=== PATIENT | female | born 1945 | race Caucasian/White ===

== ENCOUNTER 2021-08-10 12:54 | Observation (INO) | payer MEDICARE ==
[~2021-08-10] VITALS: Ht 154.9 cm; Wt 89.9 kg
[2021-08-10] MEDS ORDERED: fentaNYL PF VIAL 100 MCG/2 ML VIAL IV ONE (13:30)
[2021-08-10] MEDS ORDERED: ASPIRIN 325 MG TABLET PO ONE (13:30)
[2021-08-10] MEDS ORDERED: ONDANSETRON PF 4 MG/2 ML VIAL. IVP ONE (13:30)
[2021-08-10 13:31] LABS: BASO % 0 % (0-3); EOS % 0 % (0-3); HEMATOCRIT 44.5 % (36.0-47.0); HEMOGLOBIN 15.1 g/dL (12.0-15.5); LYMPH # 0.5 x10^3/uL (1.0-4.8); LYMPH % 4 % (24-48); MEAN CORPUSCULAR HEMOGLOBIN 32 pg (25-35); MEAN CORPUSCULAR HGB CONC 34 g/dL (31-37); MEAN CORPUSCULAR VOLUME 95 fL (79-100); MONO # 0.8 x10^3/uL (0.0-1.1); MONO % 6 % (0-9); NEUT # 11.2 x10^3/uL (1.8-7.7); NEUT % 89 % (31-73); PLATELET COUNT 159 x10^3/uL (140-400); RED BLOOD COUNT 4.69 x10^6/uL (3.50-5.40); RED CELL DISTRIBUTION WIDTH 14.3 % (11.5-14.5); WHITE BLOOD COUNT 12.6 x10^3/uL (4.0-11.0)
[2021-08-10 13:39] LABS: CALCIUM 8.9 mg/dL (8.5-10.1); CREATININE 1.4 mg/dL (0.6-1.0); GFR 36.7; POTASSIUM 3.8 mmol/L (3.5-5.1)
[2021-08-10 13:44] LABS: ALBUMIN 3.4 g/dL (3.4-5.0); TOTAL BILIRUBIN 0.6 mg/dL (0.2-1.0); TOTAL PROTEIN 6.8 g/dL (6.4-8.2)
--- NOTE | 2021-08-10 13:45 | PHYS DOC ---
Past Medical History Past Medical History: Hypertension, Hypothyroid Past Medical History Patient reports that 5 years prior she believes she had an arrhythmia which led to a cardioversion. She is unsure of additional specific cardiac histories Additional Past Surgical Histo: Cataracts Additional Information: At least 50-year history of a pack every 4 days cigarettes Alcohol Use: None Drug Use: None Social History Narrative: Unremarkable social history General Adult EDM: Chief Complaint: CHEST PAIN HPI: HPI: Patient is a 76-year-old female who presents to the emergency department via triage with a chief complaint of chest pain since 0630 hrs. patient reports that the chest pain started suddenly, is described as a sharp pain, on the left side underneath the breast and radiating to the left shoulder. Pain is rated as a 10/10. Pain is worse on inspiration. Patient did not report any radiation to the arm or jaw. She did have nausea this morning however there was no vomiting, she denies having any episodes of diaphoresis. She has no recent long periods of travel. No recent vacations. She reports taking all of her medications as prescribed. Recently she had her dose of amiodarone lowered but there were no other changes to medications. She reports that she has had a slight cough and shortness of breath. Please note that upon arrival to the department she had an a pulse ox of 87% on room air which increased to 96% on 2 L nasal cannula. The patient is not regularly on supplemental oxygen. Patient reports slight bilateral leg swelling however that is normal for her. She denies any significantly worse unilateral leg swelling or pain. Patient denies history of diabetes or COPD. She only reports a history of hypertension and hypothyroidism however in conversing with her she is on several cardiac medications including Eliquis, spironolactone, amiodarone, hydralazine, furosemide. Review of Systems: Review of Systems: Constitutional: Denies fever or chills Eyes: Denies redness or eye pain HENT: Denies nasal congestion or sore throat Respiratory: Reports cough, shortness of breath Cardiovascular: Reports chest pain, left shoulder blade pain, denies palpitations GI: Denies abdominal pain, vomiting; reports nausea : Denies dysuria or hematuria Musculoskeletal: Denies back pain or joint pain Integument: Denies rash or skin lesions, denies diaphoresis Neurologic: Denies headache, focal weakness or sensory changes Complete systems were reviewed and found to be within normal limits, except as documented in this note. Heart Score: C/O Chest Pain: Yes HEART Score for Chest Pain: HEART Score for Chest Pain Response (Comments) Value History Slighlty/Non-Suspicious 0 ECG Normal 0 Age > 65 2 Risk Factors 1 or 2 Risk Factors 1 Total 3 Risk Factors: Risk Factors: DM, Current or recent (<one month) smoker, HTN, HLP, family history of CAD, obesity. Risk Scores: Score 0 - 3: 2.5% MACE over next 6 weeks - Discharge Home Score 4 - 6: 20.3% MACE over next 6 weeks - Admit for Clinical Observation Score 7 - 10: 72.7% MACE over next 6 weeks - Early Invasive Strategies Current Medications: Current Medications Medications (Trade) Dose Ordered Sig/Cory Start Time Stop Time Status Last Admin Dose Admin Aspirin (Mia Aspirin) 325 mg 1X ONCE 08/10/21 13:30 08/10/21 13:31 DC Fentanyl Citrate (Fentanyl 2ml Vial) 50 mcg 1X ONCE 08/10/21 13:30 08/10/21 13:31 DC 08/10/21 13:32 50 MCG Ondansetron HCl (Zofran) 4 mg 1X ONCE 08/10/21 13:30 08/10/21 13:31 DC 08/10/21 13:32 4 MG Allergies: Allergies: Allergies Coded Allergies Type Severity Reaction Last Updated Verified Penicillins Allergy Severe 08/10/21 Yes Physical Exam: PE: Constitutional: Well developed, well nourished, appears anxious, non-toxic appearance HENT: Normocephalic, atraumatic Eyes: PERRL, conjunctiva normal, no discharge Neck: no tenderness, supple, no JVD, trachea midline Lungs & Thorax: Patient is short of breath, normal chest wall excursion bilaterally, lung sounds mildly diminished in bilateral bases Abdomen: Soft, no tenderness, no guarding, no rigidity, no rebound tenderness Skin: Warm, dry, no erythema, no rash Back: No tenderness, no CVA tenderness Extremities: No tenderness, ROM intact, no edema Neurologic: Alert and oriented X 3, normal motor function, normal sensory fu nction, no focal deficits noted Psychologic: Affect normal, judgment normal, appears anxious Current Patient Data: Labs: Laboratory Tests Test 08/10/21 13:12 White Blood Count 12.6 x10^3/uL (4.0-11.0) H Red Blood Count 4.69 x10^6/uL (3.50-5.40) Hemoglobin 15.1 g/dL (12.0-15.5) Hematocrit 44.5 % (36.0-47.0) Mean Corpuscular Volume 95 fL (79-100) Mean Corpuscular Hemoglobin 32 pg (25-35) Mean Corpuscular Hemoglobin Concent 34 g/dL (31-37) Red Cell Distribution Width 14.3 % (11.5-14.5) Platelet Count 159 x10^3/uL (140-400) Neutrophils (%) (Auto) 89 % (31-73) H Lymphocytes (%) (Auto) 4 % (24-48) L Monocytes (%) (Auto) 6 % (0-9) Eosinophils (%) (Auto) 0 % (0-3) Basophils (%) (Auto) 0 % (0-3) Neutrophils # (Auto) 11.2 x10^3/uL (1.8-7.7) H Lymphocytes # (Auto) 0.5 x10^3/uL (1.0-4.8) L Monocytes # (Auto) 0.8 x10^3/uL (0.0-1.1) Eosinophils # (Auto) 0.0 x10^3/uL (0.0-0.7) Basophils # (Auto) 0.0 x10^3/uL (0.0-0.2) Platelet Estimate Pending Laboratory Tests 08/10/21 13:12 Vital Signs: Vital Signs Date Time Temp Pulse Resp B/P (MAP) Pulse Ox O2 Delivery O2 Flow Rate FiO2 08/10/21 13:32 26 93 Nasal Cannula 2.0 EKG: EKG: EKG taken at 1303 hrs. sinus bradycardia rate of 52 bpm. MI interval approximately 120 ms, QRS 110 ms, QT/QTc 452 ms / 422 ms. No ectopy, no evidence of acute ischemic change, ST segments at baseline. @1531 Sinus bradycardia at 55bpm, NO ST elevation, QRS 116ms, QT/QTc 440/423ms, no significant change from prior. Radiology/Procedures: Radiology/Procedures: [] Course & Med Decision Making: Course & Med Decision Making 76-year-old female presents to the emergency department via triage with a chief complaint of chest pain. Pain is described as atypical, left-sided breast pain with radiation to left shoulder however worse with inspiration, not associated with exertion. Patient on several cardiac meds with uncertain specific cardiac history. Initial EKG taken not concerning for any acute ischemic changes, as documented within this report. Plan for patient to receive IV, blood work, EKG, CTA chest. Please note that the patient reports history of "breaking out "when taking aspirin and subsequently refused medication. Patient requiring admission for further evaluation and treatment. Discussed with Dr. Mcfadden (hospitalist) who is in agreement with admission. Discussed findings and plan with patient, who acknowledges understanding and agreement. Vane Disclaimer: Vane Disclaimer: This electronic medical record was generated, in whole or in part, using a voice recognition dictation system. Departure Departure Impression: Primary Impression: Chest pain Qualified Codes: R07.9 - Chest pain, unspecified Additional Impression: Renal insufficiency Disposition: ADMITTED INPATIENT (observation) Admitting Physician: OMAYRA (Bogdan) Condition: STABLE AMBER GONG Holger MATA Aug 10, 2021 13:45
[2021-08-10 13:55] LABS: % BANDS 7 % (0-9); % EOS 2 % (0-5); % LYMPHS 5 % (24-48); % MONOS 6 % (0-10); % SEGS 80 % (35-66); PLT ESTIMATE ADEQUATE (ADEQUATE)
[2021-08-10] MEDS ORDERED: HYDR100T24 PO (14:11)
[2021-08-10] MEDS ORDERED: AMIO100T4 PO (14:11)
[2021-08-10] MEDS ORDERED: PANT20TA2 PO (14:11)
[2021-08-10] MEDS ORDERED: SPIR100T4 PO (14:11)
[2021-08-10] MEDS ORDERED: FERR-36 PO (14:11)
--- NOTE | 2021-08-10 14:58 | RAD ---
XR CHEST 1V 08/10/2021 2:53 PM INDICATION: Chest pain COMPARISON: None available TECHNIQUE: Portable frontal view of the chest is provided. FINDINGS: The cardiomediastinal silhouette is borderline enlarged. Perihilar interstitial changes are identifie d as may be seen with interstitial pneumonitis versus interstitial edema. Trace left pleural effusion. No pneumothorax. No suspicious osseous abnormality. IMPRESSION: Borderline cardiac may relate with perihilar interstitial prominence. Differential considerations wou ld include interstitial edema as may be seen with congestive heart failure versus interstitial pneumo nitis of infectious/inflammatory etiology. Electronically signed by: Maryam Miranda MD (08/10/2021 2:55 PM) [id number]
[2021-08-10] MEDS ORDERED: fentaNYL PF VIAL 100 MCG/2 ML VIAL IVP PRN (15:00)
[2021-08-10] MEDS ORDERED: ONDANSETRON PF 4 MG/2 ML VIAL. IVP PRN ×2 (15:00→17:30)
--- NOTE | 2021-08-10 15:43 | EKG ---
[facility] [address] [place] [address] Test Date: 2021-08-10 Test Time: 15:31:40 Pat Name: ALEXANDER AN Department: Room: 8 1 Gender: F Director Of Field Sales: : 1945 Requested By: AMBER GONG Order Number: [id number] Reading MD: Eduardo Bright Measurements Intervals [place] Rate: 55 P: RI: QRS: 88 QRSD: 116 T: 19 QT: 440 QTc: 423 Interpretive Statements PROBABLE SINUS BRADYCARDIA PACS Electronically Signed On 08-11-2021 9:33:19 INSTRUMENTATION TECHNICIAN by Eduardo Bright
--- NOTE | 2021-08-10 15:44 | EKG ---
[facility] [address] [place] [address] Test Date: 2021-08-10 Test Time: 13:03:11 Pat Name: ALEXANDER AN Department: Room: 8 Gender: F Medical Assistant Float: : 1945 Requested By: AMBER GONG Order Number: [id number] Reading MD: Eduardo Bright Measurements Intervals [place] Rate: 52 P: [place]: QRS: 79 QRSD: 110 T: 31 QT: 452 QTc: 422 Interpretive Statements PROBABLE SINUS RHYTHM NONSPECIFIC ST T WAVE CHANGES Electronically Signed On 08-11-2021 9:37:33 SENIOR ANALYTIC CONSULTANT by Eduardo Bright
[2021-08-10 16:15] VITALS: BP 157/59
--- NOTE | 2021-08-10 17:29 | PDOC1 ---
History and Physical Date of Service: DOS: DATE: 08/10/21 TIME: 17:28 Chief Complaint: Chief Complain: chest pain History of Present Illness: HPI: Patient is a 76-year-old female who presents to the emergency department via triage with a chief complaint of chest pain since 0630 hrs. patient reports that the chest pain started suddenly, is described as a sharp pain, on the left side underneath the breast and radiating to the left shoulder. Pain is rated as a 10/10. Pain is worse on inspiration. Patient did not report any radiation to the arm or jaw. She did have nausea this morning however there was no vomiting, she denies having any episodes of diaphoresis. She has no recent long periods of travel. No recent vacations. She reports taking all of her medications as prescribed. Recently she had her dose of amiodarone lowered but there were no other changes to medications. She reports that she has had a slight cough and shortness of breath. Please note that upon arrival to the department she had an a pulse ox of 87% on room air which increased to 96% on 2 L nasal cannula. The patient is not regularly on supplemental oxygen. Patient reports slight bilateral leg swelling however that is normal for her. She denies any significantly worse unilateral leg swelling or pain. Patient denies history of diabetes or COPD. She only reports a history of hypertension and hypothyroidism however in conversing with her she is on several cardiac medications including Eliquis, spironolactone, amiodarone, hydralazine, furosemide. Past Medical/Surgical History: PMH/PSH: HTN, Hypothyroid, Afib, CHF Allergies: Allergies: Coded Allergies: Penicillins (Verified Allergy, Severe, 08/10/21) Family History: Family History: HTN Social History: Social History: Smokes pack cigarettes every 4 days. Denies alcohol drug use. Current Medications: Current Medications Current Medications Aspirin (Mia Aspirin) 325 mg 1X ONCE PO ; Start 08/10/21 at 13:30; Stop 08/10/21 at 13:31; Status DC Ondansetron HCl (Zofran) 4 mg 1X ONCE IVP Last administered on 08/10/21at 13:32; Start 08/10/21 at 13:30; Stop 08/10/21 at 13:31; Status DC Fentanyl Citrate (Fentanyl 2ml Vial) 50 mcg 1X ONCE IV Last administered on 08/10/21at 13:32; Start 08/10/21 at 13:30; Stop 08/10/21 at 13:31; Status DC Ondansetron HCl (Zofran) 4 mg PRN Q8HRS PRN IVP NAUSEA/VOMITING; Start 1 10/10/20 at 15:00; Stop 08/11/21 at 14:59 Fentanyl Citrate (Fentanyl 2ml Vial) 50 mcg PRN Q2HRS PRN IVP PAIN; Start 08/10/21 at 15:00 Active Scripts Active Reported Iron (Ferrous Sulfate) 325 Mg Tablet 325 Mg PO DAILY Hydralazine Hcl 100 Mg Tablet 100 Mg PO TID Protonix (Pantoprazole Sodium) 20 Mg Tablet.dr 20 Mg PO DAILY Amiodarone Hcl 100 Mg Tablet 100 Mg PO DAILY Spironolactone 100 Mg Tablet 100 Mg PO DAILY ROS: Review of Systems Review of System Unless noted in HPI 14 point review of systems was negative Physical Exam: Vital Signs: Vital Signs Date Time Temp Pulse Resp B/P (MAP) Pulse Ox O2 Delivery O2 Flow Rate FiO2 08/10/21 16:48 Nasal Cannula 2.0 08/10/21 16:15 98.4 56 20 157/59 (91) 98.4 08/10/21 15:45 92 Physcial Exam: GEN: No apparent distress. Alert and oriented HEENT: Normal cephalic, atraumatic, external auditory canals are patent EYES: Extraocular muscles are intact, pupil are equally round and reactive to light and accommodation MUSCULOSKELETAL: Well developed , well nourished, good range of motion ENDOCRINE: No thyromegaly was palpated LYMPHATICS: No cervical chain or axillary nodes were noted HEMATOPOIETIC: No bruising NECK: Supple, no JVD, no thyromegaly was noted LUNGS: Clear to auscultation in all lung alaniz without rhonchi or wheezing HEART: RRR, S!, S2 present. Peripheral pulses intact, no obvious murmurs noted ABDOMEN: Soft, nontender. Positive bowel sounds, no organomegaly, normal bowel sounds EXTREMITIES: Without clubbing, cyanosis, or edema. Pedal pulses intact. Negative Homans sign NEUROLOGIC: Normal speech and tone. A&O x 3, moves all extremities, no obvious focal deficits PSYCHIATRIC: Normal affect, normal mood. Stable SKIN: No ulcerations or rashes, good skin turgor, no jaundice VASCULAR: Good capillary refill, neurovascular bundle appears to be intact Labs: Labs: Laboratory Tests Test 08/10/21 13:12 08/10/21 13:39 White Blood Count 12.6 x10^3/uL (4.0-11.0) Red Blood Count 4.69 x10^6/uL (3.50-5.40) Hemoglobin 15.1 g/dL (12.0-15.5) Hematocrit 44.5 % (36.0-47.0) Mean Corpuscular Volume 95 fL (79-100) Mean Corpuscular Hemoglobin 32 pg (25-35) Mean Corpuscular Hemoglobin Concent 34 g/dL (31-37) Red Cell Distribution Width 14.3 % (11.5-14.5) Platelet Count 159 x10^3/uL (140-400) Neutrophils (%) (Auto) 89 % (31-73) Lymphocytes (%) (Auto) 4 % (24-48) Monocytes (%) (Auto) 6 % (0-9) Eosinophils (%) (Auto) 0 % (0-3) Basophils (%) (Auto) 0 % (0-3) Neutrophils # (Auto) 11.2 x10^3/uL (1.8-7.7) Lymphocytes # (Auto) 0.5 x10^3/uL (1.0-4.8) Monocytes # (Auto) 0.8 x10^3/uL (0.0-1.1) Eosinophils # (Auto) 0.0 x10^3/uL (0.0-0.7) Basophils # (Auto) 0.0 x10^3/uL (0.0-0.2) Segmented Neutrophils % 80 % (35-66) Band Neutrophils % 7 % (0-9) Lymphocytes % 5 % (24-48) Monocytes % 6 % (0-10) Eosinophils % 2 % (0-5) Platelet Estimate Adequate (ADEQUATE) Prothrombin Time 16.0 SEC (11.7-14.0) Prothromb Time International Ratio 1.3 (0.8-1.1) Activated Partial Thromboplast Time 33 SEC (24-38) D-Dimer (Rashmi) 0.27 ug/mlFEU (0.00-0.50) Sodium Level 142 mmol/L (136-145) Potassium Level 3.8 mmol/L (3.5-5.1) Chloride Level 102 mmol/L (98-107) Carbon Dioxide Level 29 mmol/L (21-32) Anion Gap 11 (6-14) Blood Urea Nitrogen 29 mg/dL (7-20) Creatinine 1.4 mg/dL (0.6-1.0) Estimated GFR (Cockcroft-Gault) 36.7 BUN/Creatinine Ratio 21 (6-20) Glucose Level 104 mg/dL (70-99) Lactic Acid Level 1.5 mmol/L (0.4-2.0) Calcium Level 8.9 mg/dL (8.5-10.1) Magnesium Level 2.0 mg/dL (1.8-2.4) Total Bilirubin 0.6 mg/dL (0.2-1.0) Aspartate Amino Transf (AST/SGOT) 22 U/L (15-37) Alanine Aminotransferase (ALT/SGPT) 25 U/L (14-59) Alkaline Phosphatase 78 U/L (46-116) Creatine Kinase 116 U/L (26-192) Creatine Kinase MB (Mass) 1.1 ng/mL (0.0-3.6) Creatine Kinase MB Relative Index 0.9 % (0-4) Troponin I High Sensitivity 8 ng/L (4-50) TC-Pci-A-Type Natriuretic Peptide 1152 pg/mL (0-449) Total Protein 6.8 g/dL (6.4-8.2) Albumin 3.4 g/dL (3.4-5.0) Albumin/Globulin Ratio 1.0 (1.0-1.7) Lipase 73 U/L (73-393) SARS-CoV-2 Antigen (Rapid) Negative (NEGATIVE) Laboratory Tests Test 08/10/21 13:12 08/10/21 13:39 White Blood Count 12.6 x10^3/uL (4.0-11.0) Red Blood Count 4.69 x10^6/uL (3.50-5.40) Hemoglobin 15.1 g/dL (12.0-15.5) Hematocrit 44.5 % (36.0-47.0) Mean Corpuscular Volume 95 fL (79-100) Mean Corpuscular Hemoglobin 32 pg (25-35) Mean Corpuscular Hemoglobin Concent 34 g/dL (31-37) Red Cell Distribution Width 14.3 % (11.5-14.5) Platelet Count 159 x10^3/uL (140-400) Neutrophils (%) (Auto) 89 % (31-73) Lymphocytes (%) (Auto) 4 % (24-48) Monocytes (%) (Auto) 6 % (0-9) Eosinophils (%) (Auto) 0 % (0-3) Basophils (%) (Auto) 0 % (0-3) Neutrophils # (Auto) 11.2 x10^3/uL (1.8-7.7) Lymphocytes # (Auto) 0.5 x10^3/uL (1.0-4.8) Monocytes # (Auto) 0.8 x10^3/uL (0.0-1.1) Eosinophils # (Auto) 0.0 x10^3/uL (0.0-0.7) Basophils # (Auto) 0.0 x10^3/uL (0.0-0.2) Segmented Neutrophils % 80 % (35-66) Band Neutrophils % 7 % (0-9) Lymphocytes % 5 % (24-48) Monocytes % 6 % (0-10) Eosinophils % 2 % (0-5) Platelet Estimate Adequate (ADEQUATE) Prothrombin Time 16.0 SEC (11.7-14.0) Prothromb Time International Ratio 1.3 (0.8-1.1) Activated Partial Thromboplast Time 33 SEC (24-38) D-Dimer (Rashmi) 0.27 ug/mlFEU (0.00-0.50) Sodium Level 142 mmol/L (136-145) Potassium Level 3.8 mmol/L (3.5-5.1) Chloride Level 102 mmol/L (98-107) Carbon Dioxide Level 29 mmol/L (21-32) Anion Gap 11 (6-14) Blood Urea Nitrogen 29 mg/dL (7-20) Creatinine 1.4 mg/dL (0.6-1.0) Estimated GFR (Cockcroft-Gault) 36.7 BUN/Creatinine Ratio 21 (6-20) Glucose Level 104 mg/dL (70-99) Lactic Acid Level 1.5 mmol/L (0.4-2.0) Calcium Level 8.9 mg/dL (8.5-10.1) Magnesium Level 2.0 mg/dL (1.8-2.4) Total Bilirubin 0.6 mg/dL (0.2-1.0) Aspartate Amino Transf (AST/SGOT) 22 U/L (15-37) Alanine Aminotransferase (ALT/SGPT) 25 U/L (14-59) Alkaline Phosphatase 78 U/L (46-116) Creatine Kinase 116 U/L (26-192) Creatine Kinase MB (Mass) 1.1 ng/mL (0.0-3.6) Creatine Kinase MB Relative Index 0.9 % (0-4) Troponin I High Sensitivity 8 ng/L (4-50) BW-Fyp-G-Type Natriuretic Peptide 1152 pg/mL (0-449) Total Protein 6.8 g/dL (6.4-8.2) Albumin 3.4 g/dL (3.4-5.0) Albumin/Globulin Ratio 1.0 (1.0-1.7) Lipase 73 U/L (73-393) SARS-CoV-2 Antigen (Rapid) Negative (NEGATIVE) Assessment/Plan Assessment/Plan Atypical chest pain, History of A. fib CHF hypothyroid hypertension -Patient with a 1 day history of chest pain kind of atypical. -Pretty notable cardiac history of bradycardia the A. fib CHF -Resume home cardiac medications. Amiodarone for rhythm control Eliquis stroke prophylaxis -Consult to cardiology -Trend troponin -Eliquis will serve as DVT prophylaxis -Cardiac diet Justifications for Admission Other Justification SILVIANO ERICKSON MD Aug 10, 2021 17:29
[2021-08-10] MEDS ORDERED: ZOLPIDEM 5 MG TABLET. PO PRN (17:30)
[2021-08-10] MEDS ORDERED: ELECTROLYTE (NON-ICU) PROTOCOL. MC PRN (17:30)
[2021-08-10] MEDS ORDERED: MORPHINE SULFATE 2 MG/ML INJ. IV PRN ×2 (17:30)
[2021-08-10 19:10] VITALS: BP 146/93
[2021-08-10] MEDS: SENNOSIDES/DOCUSATE 8.6/50MG TABLET. PO SCH (20:30)
[2021-08-10] MEDS: HEPARIN for SUB-Q USE 5,000 UNIT/ML VIAL. SQ SCH (20:30)
[2021-08-10 22:14] VITALS: BP 161/79
[2021-08-11 02:28] VITALS: BP 128/79
[2021-08-11 03:41] LABS: BILIRUBIN,URINE NEGATIVE (NEG); CLARITY,URINE CLEAR; COLOR,URINE YELLOW; NITRITE,URINE NEGATIVE (NEG); PROTEIN,URINE NEGATIVE (NEG-TRACE); UROBILINOGEN,URINE 0.2 mg/dL (0.2 mg/dL)
[2021-08-11 03:48] LABS: BACTERIA,URINE MANY /HPF (0-FEW); RBC,URINE 0 /HPF (0-2)
[2021-08-11] MEDS ORDERED: APIX2.5T PO (05:12)
[2021-08-11] MEDS ORDERED: LEVO75TA5 PO (05:12)
[2021-08-11] MEDS ORDERED: ISOS30TA19 PO (05:12)
[2021-08-11] MEDS ORDERED: potassium PO (05:15)
[2021-08-11] MEDS ORDERED: vitamin e PO (05:15)
[2021-08-11] MEDS ORDERED: calcium PO (05:15)
[2021-08-11] MEDS ORDERED: iron PO (05:15)
[2021-08-11] MEDS: HEPARIN for SUB-Q USE 5,000 UNIT/ML VIAL. SQ SCH (06:04)
[2021-08-11 07:00] VITALS: BP 155/78
[2021-08-11] MEDS: AMIODARONE HCL 200 MG TABLET. PO SCH (09:00)
--- NOTE | 2021-08-11 10:50 | PDOC2 ---
ANGY KRAMER CABLE INSTALLER 08/11/21 1050: CARDIAC CONSULT DATE OF CONSULT Date of Consult DATE: 08/11/21 TIME: 10:45 REASON FOR CONSULT Reason for Consult: Chest pain REFERRING PHYSICIAN Referring Physician: Dr. Leung SOURCE Source: Chart review, Patient HISTORY OF PRESENT ILLNESS HISTORY OF PRESENT ILLNESS This is a 76 yo female who presented secondary to chest pain. Patient reports pain in her left chest that began around 6:30 yesterday morning. Thought pain was related to GERD. Pain persisted into the afternoon so she decided to come to the ED for further evaluation and treatment. Pain resolved with morphine. Reports pain as ache. Did not radiate. No associated shortness of breath, dizziness, diaphoresis, or nausea/vomiting. Did not think pain was related to a heart attack. Follows with [facility] cardiology team. Underwent stress test in March for which she reports a normal. PAST MEDICAL HISTORY Cardiovascular: AFIB, CAD, CHF, HTN, Hyperlipidemia Musculoskeletal: Osteoarthritis Renal/: Chronic renal insuff Endocrine: Hypothyroidism PAST SURGICAL HISTORY Past Surgical History: Cataract Removal FAMILY HISTORY Family History: Hypertension SOCIAL HISTORY Smoke: No ALCOHOL: none Drugs: None Lives: Friends CURRENT MEDICATIONS CURRENT MEDICATIONS Current Medications Medications (Trade) Dose Ordered Sig/Cory Route PRN Reason Start Time Stop Time Status Last Admin Dose Admin Ondansetron HCl (Zofran) 4 mg 1X ONCE IVP 08/10/21 13:30 08/10/21 13:31 DC 08/10/21 13:32 Fentanyl Citrate (Fentanyl 2ml Vial) 50 mcg 1X ONCE IV 08/10/21 13:30 08/10/21 13:31 DC 08/10/21 13:32 Hydralazine HCl (Apresoline) 100 mg TID PO 08/10/21 21:00 08/10/21 20:30 Morphine Sulfate (Morphine Sulfate) 2 mg PRN Q1HR PRN IV PAIN 08/10/21 17:30 08/10/21 21:03 Senna/Docusate Sodium (Senna Plus) 1 tab BID PO 08/10/21 21:00 08/10/21 20:30 Heparin Sodium (Porcine) (Heparin Sodium) 5,000 unit Q8HRS SQ 08/10/21 22:00 08/11/21 06:04 ALLERGIES ALLERGIES: Coded Allergies: Penicillins (Verified Allergy, Severe, 08/10/21) ROS Review of System 14 point ROS conducted with pertinent positives noted above in HPI PHYSICAL EXAM General: Alert, Oriented X3, Cooperative, No acute distress HEENT: Atraumatic Lungs: Clear to auscultation Heart: Regular rate (SB) Abdomen: Soft, No tenderness Extremities: No edema, Normal pulses Skin: No significant lesion Neuro: Normal speech, Sensation intact Psych/Mental Status: Mental status NL, Mood NL MUSCULOSKELETAL: Osteoarthritic changes both hands VITALS/I&O VITALS/I&O: Vital Signs Date Time Temp Pulse Resp B/P (MAP) Pulse Ox O2 Delivery O2 Flow Rate FiO2 08/11/21 08:00 Nasal Cannula 2.0 08/11/21 07:00 98.1 51 18 155/78 (103) 90 98.1 I & O 08/10/21 08/10/21 08/11/21 15:00 23:00 07:00 Intake Total 240 ml 200 ml Output Total 250 ml Balance 240 ml -50 ml LABS Lab: Laboratory Tests Test 08/10/21 13:12 08/10/21 13:39 08/10/21 17:10 08/10/21 18:49 White Blood Count 12.6 x10^3/uL (4.0-11.0) H Red Blood Count 4.69 x10^6/uL (3.50-5.40) Hemoglobin 15.1 g/dL (12.0-15.5) Hematocrit 44.5 % (36.0-47.0) Mean Corpuscular Volume 95 fL (79-100) Mean Corpuscular Hemoglobin 32 pg (25-35) Mean Corpuscular Hemoglobin Concent 34 g/dL (31-37) Red Cell Distribution Width 14.3 % (11.5-14.5) Platelet Count 159 x10^3/uL (140-400) Neutrophils (%) (Auto) 89 % (31-73) H Lymphocytes (%) (Auto) 4 % (24-48) L Monocytes (%) (Auto) 6 % (0-9) Eosinophils (%) (Auto) 0 % (0-3) Basophils (%) (Auto) 0 % (0-3) Neutrophils # (Auto) 11.2 x10^3/uL (1.8-7.7) H Lymphocytes # (Auto) 0.5 x10^3/uL (1.0-4.8) L Monocytes # (Auto) 0.8 x10^3/uL (0.0-1.1) Eosinophils # (Auto) 0.0 x10^3/uL (0.0-0.7) Basophils # (Auto) 0.0 x10^3/uL (0.0-0.2) Segmented Neutrophils % 80 % (35-66) H Band Neutrophils % 7 % (0-9) Lymphocytes % 5 % (24-48) L Monocytes % 6 % (0-10) Eosinophils % 2 % (0-5) Platelet Estimate Adequate (ADEQUATE) Prothrombin Time 16.0 SEC (11.7-14.0) H Prothrombin Time INR 1.3 (0.8-1.1) H Activated Partial Thromboplast Time 33 SEC (24-38) D-Dimer (Rashmi) 0.27 ug/mlFEU (0.00-0.50) Sodium Level 142 mmol/L (136-145) Potassium Level 3.8 mmol/L (3.5-5.1) Chloride Level 102 mmol/L (98-107) Carbon Dioxide Level 29 mmol/L (21-32) Anion Gap 11 (6-14) Blood Urea Nitrogen 29 mg/dL (7-20) H Creatinine 1.4 mg/dL (0.6-1.0) H Estimated GFR (Cockcroft-Gault) 36.7 BUN/Creatinine Ratio 21 (6-20) H Glucose Level 104 mg/dL (70-99) H Lactic Acid Level 1.5 mmol/L (0.4-2.0) Calcium Level 8.9 mg/dL (8.5-10.1) Magnesium Level 2.0 mg/dL (1.8-2.4) Total Bilirubin 0.6 mg/dL (0.2-1.0) Aspartate Amino Transferase (AST) 22 U/L (15-37) Alanine Aminotransferase (ALT) 25 U/L (14-59) Alkaline Phosphatase 78 U/L (46-116) Creatine Kinase 116 U/L (26-192) Creatine Kinase MB (Mass) 1.1 ng/mL (0.0-3.6) Creatine Kinase MB Relative Index 0.9 % (0-4) Troponin I High Sensitivity 8 ng/L (4-50) 9 ng/L (4-50) 9 ng/L (4-50) SD-Vsf-L-Type Natriuretic Peptide 1152 pg/mL (0-449) H Total Protein 6.8 g/dL (6.4-8.2) Albumin 3.4 g/dL (3.4-5.0) Albumin/Globulin Ratio 1.0 (1.0-1.7) Lipase 73 U/L (73-393) SARS-CoV-2 Antigen (Rapid) Negative (NEGATIVE) Test 08/11/21 03:15 Urine Collection Type Unknown Urine Color Yellow Urine Clarity Clear Urine pH 5.0 (<5.0-8.0) Urine Specific [place] 1.020 (1.000-1.030) Urine Protein Negative mg/dL (NEG-TRACE) Urine Glucose (UA) Negative mg/dL (NEG) Urine Ketones (Stick) Negative mg/dL (NEG) Urine Blood Negative (NEG) Urine Nitrite Negative (NEG) Urine Bilirubin Negative (NEG) Urine Urobilinogen Dipstick 0.2 mg/dL (0.2 mg/dL) Urine Leukocyte Esterase Negative (NEG) Urine RBC 0 /HPF (0-2) Urine WBC 1-4 /HPF (0-4) Urine Squamous Epithelial Cells Occ /LPF Urine Bacteria Many /HPF (0-FEW) Laboratory Tests 08/10/21 13:12 Laboratory Tests 08/10/21 13:12 ECHOCARDIOGRAM ECHOCARDIOGRAM 10/26/18 - 2-D + DOPPLER ECHOCARDIOGRAM Interpretation Summary Left ventricular systolic function is within normal limits. LVEF 65% Mild concentric left ventricular hypertrophy. Moderate to severe left atrial enlargement. Aortic valve sclerosis without stenosis. No pericardial effusion. Estimated peak systolic pulmonary artery pressure is 39 mmHg HEART CATH HEART CATH CARDIAC CATHETERIZATION REPORT Date 01/20/2017 LEFT HEART CATHETERIZATION FINDINGS: LV HEMODYNAMICS: Left ventricular systolic pressure was 118 mmHg with an end- diastolic pressure of 14-16 mmHg. There was no gradient across aortic valve on pullback maneuver. CORONARY ANGIOGRAPHY FINDINGS: Left anterior descending artery: The patient has separate ostia for the LAD and the left circumflex and there is no left main coronary artery. The LAD arises directly from the left aortic sinus. It is a type 3 vessel which wraps around the apex. In its mid portion, there is an area of 30% to 40% stenosis. In the proximal portion, there is an area of around 20% stenosis. It gives rise to 2 diagonal branches which are free of any significant stenosis. Left circumflex: The left circumflex artery also arises directly from the left aortic sinus. It gives rise to a 1st obtuse marginal branch which is a small vessel and has no significant stenosis. The proximal portion of the left circumflex has no significant stenosis. It then gives rise to a 2nd obtuse marginal branch which has an area of around 20% stenosis in its proximal part. The mid left circumflex artery, just beyond the takeoff of the 2nd obtuse marginal branch, has an eccentric lesion of around 60% stenosis. It then gives rise to a 3rd obtuse marginal branch which is free of any significant stenosis. The distal left circumflex has luminal irregularities, but no significant stenosis is noted. Right coronary artery: The coronary artery arises normally from the right aortic sinus. It is a technically dominant vessel which distally gives rise to a PDA and 2 PLV branches. It is noted to have mild plaquing throughout. In the proximal midportion there are areas of 30% to 40% stenosis. In the distal portion there is an area of around 20% stenosis. The PDA has an ostial 50% stenosis. The PLV branch has areas of 20% to 30% stenosis proximally, and then in the distal portion of the PLV branches there is no significant stenosis. CONCLUSIONS: Mild to moderate 3-vessel coronary artery disease with no obstructive lesion as described above. High normal LVEDP and no gradient across the aortic valve on pullback maneuver. RECOMMENDATION: At this time, we recommend aggressive risk factor reduction, and medical management by the inpatient cardiology team. Dr. Kaplan was present, supervised, and performed sheldon portions of this procedure. ASSESSMENT/PLAN ASSESSMENT/PLAN 1. Chest pain, atypical; AMI ruled out. Reports normal stress test at [facility] in March. Follows with [facility] cardiology 2. CAD; mild to moderate disease per [facility] 2017 as noted above 3. Hypertension; mildly elevated 4. Hyperlipidemia; statin 5. Mild acute on chronic diastolic CHF; s/p IV Lasix 6. PAFIB; on amiodraone for rhythm maintenance and Eliquis for stroke prophylaxis 7. Sinus bradycardia; lowest 43. no pauses 8. CKD 9. Leukocytosis Recommendations Secondary prevention Add statin Echo to assess LV systolic function Continue amiodarone therapy Avoid AV nhi blocking agents Obtain cardiac records from [facility] Probable outpatient ischemic evaluation Supportive care PASNOORI,VANGIE R MD 08/11/21 1636: CARDIAC CONSULT ASSESSMENT/PLAN ASSESSMENT/PLAN Patient seen and examined. Agree with RETAIL MAINTENANCE TECHNICIAN's assessment and plan. Chest pain with atypical features. Myocardial infarction has been ruled out. Cardiac catheterization in 2016 showed nonobstructive CAD and stress test in March of this year apparently was negative Acute on chronic diastolic heart failure better compensated with diuresis PAF maintaining sinus rhythm Continue amiodarone for rhythm maintenance and Eliquis for stroke prophylaxis Thank you for your consult ANGY KRAMER APRN Aug 11, 2021 10:50 VANGIE BRITT MD Aug 11, 2021 16:36
[2021-08-11] MEDS ORDERED: FUROSEMIDE 40 MG/4 ML VIAL. IVP ONE (11:00)
[2021-08-11 11:01] VITALS: BP 133/64
[2021-08-11] MEDS: FERROUS SULFATE 325 MG TABLET. PO SCH (11:51)
[2021-08-11] MEDS: SENNOSIDES/DOCUSATE 8.6/50MG TABLET. PO SCH ×2 (11:51→21:05)
[2021-08-11] MEDS: PANTOPRAZOLE 40 MG TABLET.DR. PO SCH (11:51)
[2021-08-11] MEDS: SPIRONOLACTONE 25 MG TABLET PO SCH (11:52)
--- NOTE | 2021-08-11 13:25 | NUR ---
SS following for discharge planning. SS reviewed pt chart and discussed with pt RN. Pt is from home and is currently requiring oxygen at two liters nasal canula. COVID19 negative. Cardiology consulted. SS will continue to follow for discharge planning.
[2021-08-11] MEDS: APIXABAN 2.5 MG TABLET. PO SCH ×2 (14:04→21:04)
[2021-08-11] MEDS: ISOSORBIDE DINITRATE 10 MG TABLET. PO SCH ×2 (14:04→21:05)
[2021-08-11] MEDS: LEVOTHYROXINE 75 MCG TABLET PO SCH (14:04)
[2021-08-11 15:00] VITALS: BP 138/53
[2021-08-11 19:30] VITALS: BP_SYST 124; BP_SYST 139; BP_DIAS 56; BP_DIAS 72
[2021-08-11 23:10] VITALS: BP 132/42
[2021-08-12 02:40] VITALS: BP 125/55
[2021-08-12] MEDS: ACETAMINOPHEN 325 MG TABLET. PO PRN ×2 (05:31→05:58)
[2021-08-12] MEDS: CALCIUM CARBONATE 500 MG TAB.CHEW PO PRN ×2 (05:31→05:58)
[2021-08-12 06:55] LABS: CHOLESTEROL/HDL RATIO 2.3
[2021-08-12 07:00] VITALS: BP 138/73
[2021-08-12] MEDS: AMIODARONE HCL 200 MG TABLET. PO SCH (09:00)
[2021-08-12] MEDS: FERROUS SULFATE 325 MG TABLET. PO SCH (09:27)
[2021-08-12] MEDS: PANTOPRAZOLE 40 MG TABLET.DR. PO SCH (09:27)
[2021-08-12] MEDS: ISOSORBIDE DINITRATE 10 MG TABLET. PO SCH ×2 (09:28→14:16)
[2021-08-12] MEDS: SENNOSIDES/DOCUSATE 8.6/50MG TABLET. PO SCH (09:28)
[2021-08-12] MEDS: LEVOTHYROXINE 75 MCG TABLET PO SCH (09:28)
[2021-08-12] MEDS: APIXABAN 2.5 MG TABLET. PO SCH (09:28)
[2021-08-12] MEDS: SPIRONOLACTONE 25 MG TABLET PO SCH (09:29)
--- NOTE | 2021-08-12 09:34 | PDOC ---
ANGY KRAMER HEALTH CARE FACILITY ADMINISTRATOR 08/12/21 0934: CARDIO Progress Notes Date and Time Date of Service 08/12/21 Time of Evaluation 1120 Subjective Subjective: No Chest Pain, No shortness of breath, No Palpitations Vitals Vitals Vital Signs Date Time Temp Pulse Resp B/P (MAP) Pulse Ox O2 Delivery O2 Flow Rate FiO2 08/12/21 07:00 99.0 52 18 138/73 (94) 94 Nasal Cannula 3.0 99.0 Weight Weight [ ] Input and Output Intake and Output Intake and Output 08/12/21 07:00 Intake Total 1410 ml Balance 1410 ml Intake Oral 1410 ml # Voids 4 Laboratory Labs Laboratory Tests Test 08/12/21 04:15 Triglycerides Level 51 mg/dL (0-150) Cholesterol Level 115 mg/dL (0-200) LDL Cholesterol, Calculated 56 mg/dL (0-100) VLDL Cholesterol, Calculated 10 mg/dL (0-40) Non-HDL Cholesterol Calculated 66 mg/dL (0-129) HDL Cholesterol 49 mg/dL (40-60) Cholesterol/HDL Ratio 2.3 Physical Exam HEENT: Neck Supple W Full Motion Chest: Symmetric LUNGS: Clear to Auscultation Heart: RRR Abdomen: Soft N/T, Other (obese) Extremities: No Edema Neurology: alert, oriented, follow commands Assessment Assessment 1. Chest pain, atypical; AMI ruled out. Reports normal stress test at [facility] in March. Follows with [facility] cardiology 2. CAD; mild to moderate disease per [facility] 2017 3. Hypertension; now controlled 4. Hyperlipidemia; statin 5. Mild acute on chronic diastolic CHF; s/p IV Lasix. appears compensated 6. PAFIB; on amiodraone for rhythm maintenance and Eliquis for stroke prophylaxis 7. Sinus bradycardia; lowest 43. no pauses 8. CKD 9. Leukocytosis, UTI. as per IM Recommendations Secondary prevention Echo today Continue amiodarone therapy for rhythm maintenance Avoid AV nhi blocking agents with bradycardia Awaiting records from [facility] Probable outpatient ischemic evaluation Supportive care Justicifation of Admission Dx: Justifications for Admission: Justification of Admission Dx: Yes Comments: Chest pain Acute on chronic diastolic CHF UTI VANGIE BRITT MD 08/12/21 0220: CARDIO Progress Notes Assessment Assessment Patient seen and examined. Agree with ELECTRONICS HARDWARE DESIGN ENGINEER's assessment and plan. Chest pain with atypical features. Myocardial infarction has been ruled out. Cardiac catheterization in 2017 showed nonobstructive CAD and stress test in March of this year apparently was negative Acute on chronic diastolic heart failure better compensated with diuresis PAF maintaining sinus rhythm 2D echo showed normal LVF Continue amiodarone for rhythm maintenance and Eliquis for stroke prophylaxis ANGY KRAMER APRN Aug 12, 2021 09:34 VANGIE BRITT MD Aug 12, 2021 18:20
[2021-08-12 10:16] VITALS: BP 136/64
--- NOTE | 2021-08-12 11:19 | NUR ---
SS following up with discharge planning. SS reviewed pt chart and discussed with pt RN. Pt is currently requiring oxygen at two liters nasal canula. Pt has no home oxygen. COVID19 negative. Cardiology following. Discharge plan is currently to home when medically ready for discharge. SS will continue to follow for discharge planning. Addendum: 08/12/21 at 1634 by SELENA QUEEN SS Discharge order on the chart. Six minute walk ordered and has not been completed at this time. SS phoned and faxed initial clinical and demographics to [facility], ; fax [phone]. Oxygen tank left with RN if oxygen is needed. RN crusher supervisor notified. Pt has her own car at the hospital but reported that it is not safe for her to drive in the dark. RN crusher supervisor notified of this as well.
--- NOTE | 2021-08-12 13:49 | CARD ---
MR#: [id number] Date of Study: 08/12/2021 Ordering Physician: ANGY KRAMER, Referring Physician: ANGY KRAMER, Tech: Allyson Gross [facility] [place] APPROVED REPORT EXAM: Two-dimensional and M-mode echocardiogram with Doppler and color Doppler. Other Information Quality : Technically LimitedHR: 53bpm Rhythm : 3 INDICATION Congestive Heart Failure RISK FACTORS Hypertension Obesity Hyperlipidemia 2D DIMENSIONS RVDd3.3 (2.9-3.5cm)Left Atrium(2D)4.8 (1.6-4.0cm) IVSd1.1 (0.7-1.1cm)Aortic Root(2D)2.7 (2.0-3.7cm) LVDd5.9 (3.9-5.9cm)LVOT Diameter2.1 (1.8-2.4cm) PWd0.9 (0.7-1.1cm)LVDs3.1 (2.5-4.0cm) FS (%) 47.2 %SV135.3 ml Aortic Valve AoV Peak Rahul.175.9cm/Angel Peak GR.12.4mmHg Mitral Valve MV E Mbvtxeoi46.6cm/sMV DECEL WPHI056yg MV A Gdlbzsgu24.1cm/sE/A Ratio3.3 TDI Lateral E' P. V9.08cm/sMedial E' P. V9.97cm/s E/Lateral E'10.6E/Medial E'9.7 Tricuspid Valve TR P. Uckvdsfi126nh/sTR Peak Gr.28mmHg LEFT VENTRICLE The left ventricle is normal size. There is normal left ventricular wall thickness. The left ventricu lar systolic function is normal and the ejection fraction is within normal range. LV ejection fracti on of 55 to 60%. There is normal LV segmental wall motion. Transmitral Doppler flow pattern is Grade II-pseudonormal filling dynamics. RIGHT VENTRICLE The right ventricle is normal size. There is normal right ventricular wall thickness. The right ventr icular systolic function is normal. ATRIA The left atrium is borderline dilated. The right atrium is borderline dilated. The interatrial septum is intact with no evidence for an atrial septal defect or patent foramen ovale as noted on 2-D or Do ppler imaging. AORTIC VALVE The aortic valve is normal in structure and function. Doppler and Color Flow revealed no significant aortic regurgitation. There is no significant aortic valvular stenosis. MITRAL VALVE The mitral valve is normal in structure and function. There is no evidence of mitral valve prolapse. There is no mitral valve stenosis. Doppler and Color-flow revealed mild mitral regurgitation. TRICUSPID VALVE The tricuspid valve is normal in structure and function. Doppler and Color Flow revealed mild tricusp id regurgitation. Estimated PAP of 35 mmHg. There is no tricuspid valve stenosis. PULMONIC VALVE Doppler and Color Flow revealed no pulmonic valvular regurgitation. GREAT VESSELS The aortic root is normal in size. The ascending aorta is normal in size. The IVC is normal in size a nd collapses >50% with inspiration. PERICARDIAL EFFUSION There is no evidence of significant pericardial effusion. Critical Notification Critical Value: No <Conclusion> The left ventricle is normal size. The left ventricular systolic function is normal and the ejection fraction is within normal range. LV ejection fraction of 55 to 60%. There is normal left ventricular wall thickness. Doppler and Color Flow revealed no significant aortic regurgitation. There is no significant aortic valvular stenosis. Doppler and Color-flow revealed mild mitral regurgitation. Doppler and Color Flow revealed mild tricuspid regurgitation. Estimated PAP of 35 mmHg. Signed by : Eduardo Bright MD Electronically Approved : 08/12/2021 13:49:36
[2021-08-12 14:16] VITALS: BP 156/95
[2021-08-12 14:17] VITALS: BP 156/95
[2021-08-12] MEDS ORDERED: CYCL10TA19 PO (15:31)
[2021-08-12] MEDS ORDERED: ATOR20TA58 PO (15:31)
[2021-08-12] MEDS ORDERED: NITR100C PO (16:02)
--- NOTE | 2021-08-12 20:03 | NUR ---
6 minute walk done on patient, patient needs 2 L at rest and 3 L with exertion. educated patient on O2 use at home. Patient insisted on driving home in the dark despite telling me earlier in the day that she doesn't like to drive in the dark. Gave patient the option of a cab pass but patient refused. Discharge Note: ALEXANDER AN [address] Discharge instructions and discharge home medications reviewed with Patient and a copy given. All questions have been answered and understanding verbalized. The following instructions and handouts were given: atorvastatin, O2 use at home, chest pain, HTN IV discontinued, no complications Patient discharged to home with self care. All belongings taken home with patient.
[2021-08-12] MEDS ORDERED: ATORVASTATIN CALCIUM 20 MG TABLET PO SCH (21:00)
--- NOTE | 2021-08-12 21:14 | PDOC3 ---
[facility]-Discharge Summary Date of Admission: Date of Admission: Aug 10, 2021 Date of Discharge: Date of Discharge: Aug 12, 2021 Admission Diagnosis: Admitting Diagnosis: Chest pain Discharge Diagnosis: Discharge Diagnosis: Same Consults: Consults: Cardiology Hospital Course: Hospital Course: HPI: Patient is a 76-year-old female who presents to the emergency department via triage with a chief complaint of chest pain since 0630 hrs. patient reports that the chest pain started suddenly, is described as a sharp pain, on the left side underneath the breast and radiating to the left shoulder. Pain is rated as a 10/10. Pain is worse on inspiration. Patient did not report any radiation to the arm or jaw. She did have nausea this morning however there was no vomiting, she denies having any episodes of diaphoresis. She has no recent long periods of travel. No recent vacations. She reports taking all of her medications as prescribed. Recently she had her dose of amiodarone lowered but there were no other changes to medications. She reports that she has had a slight cough and shortness of breath. Please note that upon arrival to the department she had an a pulse ox of 87% on room air which increased to 96% on 2 L nasal cannula. The patient is not regularly on supplemental oxygen. Patient reports slight bilateral leg swelling however that is normal for her. She denies any significantly worse unilateral leg swelling or pain. Patient denies history of diabetes or COPD. She only reports a history of hypertension and hypothyroidism however in conversing with her she is on several cardiac medications including Eliquis, spironolactone, amiodarone, hydralazine, furosemide. 08/12 Patient evaluated examined at bedside. Resting in bed said chest pain definitely improved a little but still present. Evaluated by cardiology team okay for discharge. Greater than 30 minutes spent on this discharge. 21 minutes advance care planning Disposition: Disposition/Orders: D/C to Home Activity: Activity: Resume previous activity Diet: Diet: Cardiac Medications: Home Meds Active Scripts Nitrofurantoin Macrocrystal (NITROFURANTOIN) 100 Mg Capsule, 1 CAP PO BID for uti for 5 Days, #10 CAP Prov:SILVIANO ERICKSON MD 08/12/21 Cyclobenzaprine Hcl (CYCLOBENZAPRINE HCL) 10 Mg Tablet, 1 TAB PO TID PRN for PAIN for 5 Days, #15 TAB Prov:SILVIANO ERICKSON MD 08/12/21 Atorvastatin Calcium (ATORVASTATIN CALCIUM) 20 Mg Tablet, 20 MG PO QHS for hpld for 60 Days, #60 TAB Prov:SILVIANO ERICKSON MD 08/12/21 Reported Medications [potassium] No Conflict Check, 1 TAB PO DAILY 08/11/21 [calcium] No Conflict Check, 1 TAB PO DAILY 08/11/21 [vitamin e] No Conflict Check, 1 TAB PO DAILY 08/11/21 [iron] No Conflict Check, 1 TAB PO DAILY 08/11/21 Levothyroxine Sodium (LEVOTHYROXINE SODIUM) 75 Mcg Tablet, 75 MCG PO DAILYAC for THYROID SUPPLEMENT, #30 TAB 0 Refills 08/11/21 Apixaban (ELIQUIS) 2.5 Mg Tablet, 2.5 MG PO BID for afib, TAB 08/11/21 Isosorbide Dinitrate (ISOSORBIDE DINITRATE) 30 Mg Tablet, 20 MG PO TID for heart, TAB 08/11/21 Ferrous Sulfate (IRON) 325 Mg Tablet, 325 MG PO DAILY for supplement, TAB 08/10/21 Hydralazine Hcl (HYDRALAZINE HCL) 100 Mg Tablet, 100 MG PO TID for HTN, TAB 08/10/21 Pantoprazole Sodium (PROTONIX) 20 Mg Tablet.dr, 20 MG PO DAILY for indigestion, TAB 08/10/21 Amiodarone Hcl (AMIODARONE HCL) 100 Mg Tablet, 100 MG PO DAILY for afib, TAB 08/10/21 Spironolactone (SPIRONOLACTONE) 100 Mg Tablet, 100 MG PO DAILY for retention, TAB 08/10/21 Scheduled Amiodarone Hcl (Amiodarone Hcl), 100 MG PO DAILY, (Reported) Apixaban (Eliquis), 2.5 MG PO BID, (Reported) Atorvastatin Calcium (Atorvastatin Calcium), 20 MG PO QHS Ferrous Sulfate (Iron), 325 MG PO DAILY, (Reported) Hydralazine Hcl (Hydralazine Hcl), 100 MG PO TID, (Reported) Isosorbide Dinitrate (Isosorbide Dinitrate), 20 MG PO TID, (Reported) Levothyroxine Sodium (Levothyroxine Sodium), 75 MCG PO DAILYAC, (Reported) Nitrofurantoin Macrocrystal (Nitrofurantoin), 1 CAP PO BID Pantoprazole Sodium (Protonix), 20 MG PO DAILY, (Reported) Spironolactone (Spironolactone), 100 MG PO DAILY, (Reported) [calcium], 1 TAB PO DAILY, (Reported) [iron], 1 TAB PO DAILY, (Reported) [potassium], 1 TAB PO DAILY, (Reported) [vitamin e], 1 TAB PO DAILY, (Reported) Scheduled PRN Cyclobenzaprine Hcl (Cyclobenzaprine Hcl), 1 TAB PO TID PRN for PAIN Justicifation of Admission Dx: Justifications for Admission: Justification of Admission Dx: Yes SILVIANO ERICKSON MD Aug 12, 2021 21:14
== END 2021-08-12 17:50 | disposition home or self-care (01) ==
LOC: ER 12:54 → 6 SOUTH 14:50
PROVIDERS: ADMIT Student in an Organized Health Care Education/Training Program; ATTEND Student in an Organized Health Care Education/Training Program
DX: R07.89 Other chest pain (principal); Z20.822 Contact with and (suspected) exposure to COVID-19; I13.0 Hypertensive heart and chronic kidney disease with heart failure and stage 1 through stage 4 chronic kidney disease, or unspecified chronic kidney disease; I50.33 Acute on chronic diastolic (congestive) heart failure; N18.9 Chronic kidney disease, unspecified; I48.0 Paroxysmal atrial fibrillation; I25.10 Atherosclerotic heart disease of native coronary artery without angina pectoris; K21.9 Gastro-esophageal reflux disease without esophagitis; N39.0 Urinary tract infection, site not specified; E03.9 Hypothyroidism, unspecified; D72.829 Elevated white blood cell count, unspecified; E78.5 Hyperlipidemia, unspecified; F17.210 Nicotine dependence, cigarettes, uncomplicated; M19.90 Unspecified osteoarthritis, unspecified site; R00.1 Bradycardia, unspecified; Z79.82 Long term (current) use of aspirin; Z98.49 Cataract extraction status, unspecified eye
CPT/HCPCS: 36415; 71045; 80053; 80061; 81001; 82553; 83605; 83690; 83735; 83880; 84484; 85007; 85025; 85379; 85610; 85730; 87077; 87086; 87186; 87426; 93005; 93306; 94618; 96372; 96374; 96375; 99285; 99406; G0378; J1644; J1940; J2270; J2405; J3010; U0003; U0005; G0379

== ENCOUNTER 2021-12-16 15:11 | Emergency (ER) | payer OTHER, MEDICARE ==
[~2021-12-16] VITALS: Ht 157.5 cm; Wt 85.0 kg
[~2021-12-16 15:11] MED LIST: AMIO100T4 PO; APIX2.5T PO; ATOR20TA58 PO; CYCL10TA19 PO; FERR-36 PO; HYDR100T24 PO; ISOS30TA19 PO; LEVO75TA5 PO; NITR100C PO; PANT20TA2 PO; SPIR100T4 PO; calcium PO; iron PO; potassium PO; vitamin e PO
[2021-12-16 15:37] VITALS: BP 192/82
[2021-12-16] MEDS ORDERED: HYDROcodone/APAP 5/325MG 1 TAB TABLET PO ONE (16:00)
[2021-12-16] MEDS ORDERED: CYCLOBENZAPRINE 10 MG TABLET. PO ONE (16:00)
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
[2021-12-16 17:58] LABS: BACTERIA,URINE FEW /HPF (0-FEW); RBC,URINE 0 /HPF (0-2); WBC,URINE 20-40 /HPF (0-4)
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
[2021-12-16] MEDS ORDERED: CYCL10TA19 PO (18:35)
[2021-12-16] MEDS ORDERED: NITR100C62 PO (18:35)
[2021-12-16] MEDS ORDERED: HYDR-2761 PO (18:35)
== END 2021-12-16 18:40 | disposition home or self-care (01) ==
LOC: ER 15:11
DX: S20.211A Contusion of right front wall of thorax, initial encounter (principal); M25.561 Pain in right knee; M25.511 Pain in right shoulder; M25.512 Pain in left shoulder; K80.20 Calculus of gallbladder without cholecystitis without obstruction; N39.0 Urinary tract infection, site not specified; E04.1 Nontoxic single thyroid nodule; I10 Essential (primary) hypertension; E03.9 Hypothyroidism, unspecified; F17.200 Nicotine dependence, unspecified, uncomplicated; Z88.0 Allergy status to penicillin; V49.59XA Passenger injured in collision with other motor vehicles in traffic accident, initial encounter; Y93.89 Activity, other specified; Y92.488 Other paved roadways as the place of occurrence of the external cause; Y99.8 Other external cause status
CPT/HCPCS: 71250; 73562; 74176; 81001; 87077; 87086; 87186; 73030-50; 99285-25